=== PATIENT | male | born 1985 | race Caucasian/White ===

== ENCOUNTER → 2018-06-30 | Outpatient (CLI) | payer BC ==
--- NOTE | 2018-06-30 17:57 | XR ---
EXAMINATION TYPE: XR shoulder complete LT DATE OF EXAM: 06/30/2018 COMPARISON: NONE HISTORY: 33 year-old male left shoulder pain for 2 weeks TECHNIQUE: 2 views FINDINGS: AC joint appears intact. Subacromial space is preserved. No tendinous or bursal calcifications. No ac holy cross fracture, subluxation, or dislocation. Visualized left hemithorax is clear. IMPRESSION: No acute osseous abnormality seen.
== END | disposition home or self-care (01) ==
LOC: RADXRMAIN 14:48
PROVIDERS: ATTEND Family Medicine
DX: M25.512 Pain in left shoulder (principal)

== ENCOUNTER → 2020-04-17 | Outpatient (CLI) | payer BC ==
--- NOTE | 2020-04-17 11:25 | XR ---
EXAMINATION TYPE: XR abdomen 1V DATE OF EXAM: 04/17/2020 10:38 AM CLINICAL HISTORY: Pain, loss of appetite, diarrhea. TECHNIQUE: Single supine KUB image of the abdomen is obtained. COMPARISON: None. FINDINGS: There is a paucity of small bowel gas. Small amount of gas and fecal material is seen in no n-distended colon. There is no visceromegaly or abnormal calcification appreciated. No evidence of pn eumoperitoneum within limits of supine technique. The lung bases are clear and the osseous structures are intact. IMPRESSION: Overall nonobstructive bowel gas pattern, although somewhat limited examination due to paucity of sma ll bowel gas.
== END | disposition home or self-care (01) ==
LOC: RADXRMAIN 10:22
PROVIDERS: ATTEND Family Medicine
DX: R14.3 Flatulence (principal); R19.12 Hyperactive bowel sounds
CPT/HCPCS: 74018

== ENCOUNTER → 2020-04-25 | Outpatient (CLI) | payer BC ==
--- NOTE | 2020-04-26 08:57 | US ---
EXAMINATION TYPE: US abdomen complete DATE OF EXAM: 04/25/2020 COMPARISON: NONE CLINICAL HISTORY: 35-year-old male R11.2 Nausea and vomiting. Loss of appetite and N/V x 1 month TECHNIQUE: Multiple sonographic images of the abdomen are obtained. FINDINGS: EXAM MEASUREMENTS: Liver Length: 14.4 cm Gallbladder Wall: 0.2 cm CBD: 0.3 cm Spleen: 11.4 cm Right Kidney: 10.7 x 5.0 x 4.9 cm Left Kidney: 11.2 x 6.1 x 5.2 cm Pancreas: Suboptimal visualization of pancreatic head and tail due to shadowing from bowel gas. Visu alized body shows no gross abnormality. Liver: mildly heterogeneous Gallbladder: wnl Evidence for sonographic Zambrano's sign: no CBD: visualized portions wnl, limited by overlying bowel gas Spleen: visualized portions wnl, limited by overlying bowel gas Kidneys: No hydronephrosis. Upper IVC: wnl Abd Aorta: wnl IMPRESSION: Suboptimal visualization of portions of the pancreas. Otherwise, unremarkable sonographic examination of the abdomen.
== END | disposition home or self-care (01) ==
LOC: RADUSWWP 15:30
PROVIDERS: ATTEND Family Medicine
DX: R11.2 Nausea with vomiting, unspecified (principal)
CPT/HCPCS: 76700

== ENCOUNTER → 2021-04-11 | Outpatient (CLI) | payer BC | END | disposition home or self-care (01) ==

== ENCOUNTER 2021-06-10 08:49 | Day surgery (SDC) | payer BC ==
[2021-06-05 08:36] VITALS: BMI 33.9
[~2021-06-10 08:49] MED LIST: LACTATED RINGERS 1,000 ML IV SCH
[2021-06-10 09:15] VITALS: TEMP 98.4
[2021-06-10] MEDS ORDERED: LACTATED RINGERS 1,000 ML IV ONE (09:25)
[2021-06-10] MEDS ORDERED: methocarbamoL 750 MG TAB PO PRN (09:39)
[2021-06-10] MEDS ORDERED: NON FORMULARY DRUG (Epinephrine (Auto Inject) 0.3 MG/0.3 ML Syringe) IM PRN (09:39)
[2021-06-10] MEDS ORDERED: fentaNYL (PF) 50 MCG/ML 2 ML AMP ONE (09:42)
[2021-06-10] MEDS ORDERED: IOPAMIDOL M200 10 ML VIAL ONE (09:42)
[2021-06-10] MEDS ORDERED: MIDAZOLAM 2 MG/2 ML VIAL ONE (09:42)
[2021-06-10] MEDS ORDERED: methylPREDNISolone ACETATE 40 MG/ML 1 ML VIAL ONE (09:42)
[2021-06-10] MEDS ORDERED: LACTATED RINGERS 1,000 ML IV SCH (09:45)
--- NOTE | 2021-06-10 09:56 | P.PCN ---
Date of Procedure: 06/10/21 Operative Findings: 1. L4-L5 Epidural steroid injection under fluoroscopic guidance, 2. Lumbar epidurogram PREOPERATIVE DIAGNOSIS: Lumbar degenerative disc disease, and Lumbar radiculopathy. POSTOPERATIVE DIAGNOSIS: Lumbar degenerative disc disease, and Lumbar radiculopathy. SURGEON: Moreno Bangura ANESTHESIA: Local with 1% lidocaine, and IV sedation as per anesthesia record EBL: None. Specimen removed: None Fluoroscopic image: saved to electronic medical records PROCEDURE INDICATION: The patient had history of Lumbar degenerative disc disease and Lumbar radiculopathy. Failed to conservative therapy. Presented for epidural steroid injection. PROCEDURE DESCRIPTION: The patient was seen and identified in the preoperative area. Risks, benefits, complications, and alternatives were discussed with the patient. The patient agreed to proceed with the procedure and signed the c onsent. IV was started, and vital signs were stable. Patient was taken to the procedure area, and time out was completed. The patient was placed in the prone position on procedure table and a pillow was placed under the abdomen to reduce lumbar lordosis. The lumbosacral area was prepped and draped in the usual sterile fashion. Critical pause was taken. Vital signs were closely monitored during the procedure. Using anterior-posterior fluoroscopy, the L4-L5 interlaminar space was identified, and skin and deeper tissues were localized with 1% lidocaine. Using anterior-posterior fluoroscopy, lateral fluoroscopy, and dwwk-eo-ljcriepslw technique, a 20 gauge 3.5 Tuohy epidural needle entered the epidural space. After negative aspiration of CSF and blood with no paresthesias, 2 ml of [id number] contrast dye was injected and an excellent epidurogram was seen. Again after negative aspiration of CSF and blood with no paresthesias, 10 mL of block solution was injected into the epidural space. Block solution contained 80 mg of Depo-Medrol, and 8 mL of preservative-free normal saline. Needle was withdrawn intact, skin was cleansed, and bandages were applied. COMPLICATIONS: None. DISPOSITION / PLANS: The patient was placed in a supine position and transferred to the recovery area in a stable condition for observation. Patient was discharged from the recovery room after meeting discharge criteria. Home discharge instructions given to the patient by the staff. The patient was reexamined prior to discharge. The patient will schedule a follow up in the clinic in 4 weeks
[2021-06-10] MEDS ORDERED: IV FLUID CONTINUATION 1,000 ML IV ONE (10:03)
[2021-06-10 10:35] VITALS: BP 116/78; PULSE 56; RESP 20
--- NOTE | 2021-06-10 11:00 | FL ---
Fluoroscopy INDICATION: Pain FINDINGS: Fluoroscopy time: 4 seconds. Images obtained: 2. IMPRESSIONS: 1. Documentation of fluoroscopy.
== END 2021-06-10 10:33 | disposition home or self-care (01) ==
LOC: ORPAIN 08:49
DX: M51.16 Intervertebral disc disorders with radiculopathy, lumbar region (principal)
CPT/HCPCS: 62323; J2250; J1030; J3010; Q9966; 99152

== ENCOUNTER 2021-07-31 11:13 | Day surgery (SDC) | payer BC ==
[2021-07-29 18:36] VITALS: BMI 34.3
[2021-07-31 11:37] VITALS: TEMP 98
[2021-07-31] MEDS: LACTATED RINGERS 1,000 ML IV SCH ×2 (11:42→12:10)
[2021-07-31] MEDS ORDERED: IOPAMIDOL M200 10 ML VIAL ONE (12:11)
[2021-07-31] MEDS ORDERED: fentaNYL (PF) 50 MCG/ML 2 ML AMP ONE (12:11)
[2021-07-31] MEDS ORDERED: methylPREDNISolone ACETATE 40 MG/ML 1 ML VIAL ONE (12:11)
[2021-07-31] MEDS ORDERED: MIDAZOLAM 2 MG/2 ML VIAL ONE (12:11)
--- NOTE | 2021-07-31 12:27 | P.PCN ---
Date of Procedure: 07/31/21 Procedure(s) Performed: PREOPERATIVE DIAGNOSIS: 1- Lumbar Degenerative Disc Diseases 2-Lumbar spondylosis with Facet arthropathy without myelopathy 3-lumbar radiculopathy POSTOPERATIVE DIAGNOSIS: Same as preop diagnosis. PROCEDURE 1. Lumbar epidural steroid injection under fluoroscopic guidance at the L5-S1 level. (Fluoroscopy imaging was available in radiology department) 2. Lumbar epidurogram. ANESTHESIA: Local with 1% lidocaine 3 ml and , moderate sedation with i ntravenous Versed 2 mg ,and fentanyle 100 Mcg EBL: Minimal PROCEDURE INDICATION: The patient with low back pain and radiculitis symptoms unresponsive to conservative treatment. Fluoroscopy was used to optimize visualization of the needle placement and to maximize safety. PROCEDURE DESCRIPTION / TECHNIQUE: The patient was seen and identified in the preoperative area. Risks, benefits, complications including but not limited to infections ,bleeding ,allergic reaction to the medications ,nerve damage and not complete pain releife , and alternatives were discussed with the patient. The patient agreed to proceed with the procedure and signed the consent. IV was started, and vital signs were stable. Patient was taken to the OR and time out was completed. The patient was placed in the prone position on procedure table and a pillow was placed under the abdomen to reduce lumbar lordosis. The lumbosacral area was prepped and draped in the usual sterile fashion.ere closely monitored during the procedure. Conscious sedation was used during the procedure to decrease patients anxiety. Vital signs was monitered during the entire procedure. Using anterior-posterior fluoroscopy, the L5-S1 interlaminar space was identified and the skin over this site was marked and then infiltrated with 1% lidocaine subcutaneously. Subsequently, a 20-gauge Tuohy epidural needle was inserted and advanced toward the epidural space using the ``Loss of resistance technique and guided by AP and lateral fluoroscopy. The correct needle position in the epidural space was verified with the injection of 2 mL of the water soluble contrast dye Isovue 200 contrast and observing an excellent epidurogram with the epidural spread of the dye, after negative aspiration for blood and CSF and in the absence of paresthesias. Again after negative aspiration, a 6 ml mixture containing 80 mg of Depo-medrol , and 2 ml of preservative free Normal Saline, and 2 ml of preservative free lidocaine 1% solution was injected and a washout of epidurogram was seen. Needle was withdrawn intact, skin was cleansed, and bandages were applied. COMPLICATIONS: None DISPOSITION / PLANS: The patient was placed in a supine position and transferred to the recovery area in a stable condition for observation. There was no evidence of lower extremity motor or sensory deficit after the procedure. Patient was discharged from the recovery room after meeting discharge criteria. Home discharge instructions were given to the patient by the staff. The patient was reexamined prior to discharge. The patient will schedule a follow up in the clinic in 2-4 weeks.
[2021-07-31] MEDS ORDERED: LACTATED RINGERS 1,000 ML IV ONE (12:29)
[2021-07-31] MEDS ORDERED: IV FLUID CONTINUATION 1,000 ML IV ONE (12:29)
--- NOTE | 2021-07-31 12:33 | FL ---
Fluoroscopy History: Lumbar Epid Steroid Inj fluoro time: 6 sec. Lumbar SS Lumbar Epidural Steroid injection. 2 images sent.
[2021-07-31 13:00] VITALS: BP 136/94; PULSE 69; RESP 16
== END 2021-07-31 13:05 | disposition home or self-care (01) ==
LOC: ORPAIN 11:13
PROVIDERS: ATTEND Specialist
DX: M51.16 Intervertebral disc disorders with radiculopathy, lumbar region (principal); M47.26 Other spondylosis with radiculopathy, lumbar region; Z88.2 Allergy status to sulfonamides; Z91.048 Other nonmedicinal substance allergy status
CPT/HCPCS: 62323; J2250; J1030; J3010; Q9966; 99152

== ENCOUNTER → 2021-09-15 | Outpatient (CLI) | payer BC ==
[2021-09-15 09:04] LABS: Basophils # (A) 0.1 k/uL (0-0.2); Basophils % (A) 1 %; Eosinophils # (A) 0.2 k/uL (0-0.7); Eosinophils % (A) 2 %; HCT 47.2 % (39.0-53.0); HGB 15.5 gm/dL (13.0-17.5); Lymphocytes # (A) 1.6 k/uL (1.0-4.8); Lymphocytes % (A) 25 %; MCH 30.2 pg (25.0-35.0); MCHC 32.8 g/dL (31.0-37.0); Mean Platelet Volume 7.7; Monocytes # (A) 0.5 k/uL (0-1.0); Monocytes % (A) 7 %; Neutrophils # (A) 3.8 k/uL (1.3-7.7); Neutrophils % (A) 61 %; Platelet Count 219 k/uL (150-450); RBC 5.14 m/uL (4.30-5.90); RDW 12.9 % (11.5-15.5); WBC 6.3 k/uL (3.8-10.6)
[2021-09-15 09:19] LABS: Potassium 4.8 mmol/L (3.5-5.1)
== END | disposition home or self-care (01) ==
LOC: LABWHC1 08:39
PROVIDERS: ATTEND Orthopaedic Surgery
DX: Z01.812 Encounter for preprocedural laboratory examination (principal); M51.26 Other intervertebral disc displacement, lumbar region
CPT/HCPCS: 36415; 80051; 85025

== ENCOUNTER 2021-09-30 08:03 | Day surgery (SDC) | payer BC ==
[2021-09-24 09:14] VITALS: BMI 34.8
[~2021-09-30 08:03] MED LIST changes: +ACETAMINOPHEN TAB 500 MG TAB PO PRN; +GABAPENTIN 300 MG CAP PO PRN; +HYDROmorphone 0.5 MG/0.5 ML SYRINGE IVP PRN; +LIDOCAINE 1% (10MG/ML) FOR IV START INTRADERMA PRN; +ONDANSETRON 4 MG/2 ML VIAL IVP PRN; +TRANEXAMIC ACID 1,000 MG in SODIUM CHLORIDE 0.9% 100 ML IVPB PRN
[2021-09-30] MEDS ORDERED: MIDAZOLAM 2 MG/2 ML VIAL IVP ONE (08:46)
[2021-09-30] MEDS ORDERED: LACTATED RINGERS 1,000 ML IV ONE ×2 (08:50→12:22)
--- NOTE | 2021-09-30 10:17 | P.HPOR ---
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 DOI: 02/11/2021 TREATMENTS COMPLETED: 6 weeks of Physical Therapy Completed? Yes How many sessions? 12 Did it help? No Physician Directed Home Exercise Program Completed? yes Medications: OTC? yes , Ibuprofen without any improvement Rx Medications?: yes If yes, what kind?: Prednisone Alternative Interventions: Chiropractic?: No Brace: No Injections: Yes (lumbar LUIS FELIPE) 06/10/2021 How many? 1 Did they help? No RFA: No HPI: Pt presents today on follow up after his second LUIS FELIPE. He states that the second Luis Felipe which was at L5-S1 seemed to help him the most but he did get relief from both L4-5 and L5-S1. However, it was only about 2 weeks of relief and he is still having symptoms of radiculopathy, weakness, claudicant back pain which are not getting bettter. He intermittently takes motrin for pain which does help, however not consistantly. He states no bowel or bladder iss ues. Denies any perineal numbness/tinglnig. His isin room with him and states his day today is difficult lately due to his sx. HISTORY: Mr. Pabon was last seen on 05/09/2021 regarding his low back. He noted that about four months (02/2021) he stepped out of a car and felt immediate, sharp pain. This has been ongoing since. Regarding the pain the patient does note that the low back pain does radiate down into his right lower extremity, noting burning as well. He did have an EMG for this but the patient was not able to secure a copy of the results of this yet. Overall his pain is severe and the patient noted significant discomfort and inability to perform many of his daily functions. The patient did report that most of his pain is along the left side and he does report associated numbness and tingling in the left lower extremity. He noted that following the injury the patient followed up with his PCP who gave him an injection (done on 02/19/2021 and 02/28/2021) which did not improve his symptoms. He then completed a lumbar LUIS FELIPE injection after his last visit with mys elf without any improvement. Additionally, the patient had previously taken Prednisone given to him by his PCP for pain management with good effect. Along with this he has done PT for the low back with no improvement to his symptoms. Otherwise, the patient denied any bowel issues or incontinence. Today Mr. Pabon presents to the office for a follow up evaluation of his low back. The patient reports that after his last visit on 05/09/2021 he was able to complete only one of the two lumbar LUIS FELIPE due to insurance not approving the second injection. With the one completed injection (on 06/10/2021) the patient denies any improvements to his symptoms. Overall the patient states that his symptoms are the same to what they were at the time of the previous visit, denying any improvement with any conservative treatment thus far. Ralph is still reporting left side pain that radiates into the left lower extremity. This pain increases with ambulation and standing for extended periods of time. Mr. Pabon denies any bladder or bowel issues. The patients' past social, medical, family, surgical history, as well as review of systems, have been reviewed. Please refer to the Neurosurgery History and Physical form that has been scanned in to our electronic medical record system. Review of Systems 14 points review of systems completed and as stated in HPI, all other systems reviewed are negative. Past Medical History Past Medical History: Musculoskeletal Disorder Additional Past Medical History / Comment(s): Back pain, radiates down leftt leg, herniated discs, numbness and tingling in left leg. History of Any Multi-Drug Resistant Organisms: None Reported Past Surgical History: Appendectomy, Ear Surgery, Tonsillectomy Additional Past Surgical History / Comment(s): BMT. Pain Clinic Procedures. Past Anesthesia/Blood Transfusion Reactions: No Reported Reaction Past Psychological History: No Psychological Hx Reported Smoking Status: Former smoker, Vaper Past Alcohol Use History: Occasional Additional Past Alcohol Use History / Comment(s): Smoked 18-20 years, 1 ppd, quit in 2016, now vapes. Past Drug Use History: Marijuana Additional Drug Use History / Comment(s): Marijuana use occasionally. Aware no u se 24 hrs prior to procedure. - Past Family History Mother Family Medical History: No Reported History Medications and Allergies Home Medications Medication Instructions Recorded Confirmed Type EPINEPHrine (Auto Inject) [Epipen] 0.3 mg IM ONCE PRN #1 syringe 04/28/15 09/24/21 Rx Allergies Allergy/AdvReac Type Severity Reaction Status Date / Time Sulfa (Sulfonamide Allergy Unknown Verified 09/24/21 09:07 Antibiotics) venom-honey bee Allergy Unknown Verified 09/24/21 09:07 [bee venom (honey bee)] Physical Examination Osteopathic Statement: *. No significant issues noted on an osteopathic structu ral exam other than those noted in the History and Physical/Consult. PHYSICAL EXAMINATION: General: Awake, alert, appropriate for age, in no acute distress. HEENT: No unusual neck masses around region of lateral neck triangle, thyroid, supraclavicular groove Heart: Regular rate and rhythm, normal S1, S2 and no murmur/gallop. Lungs: Clear to auscultation bilaterally with no use of accessory muscles. Extremities: Skin warm and dry without acute lesions, coloration, temperature, skin intact, no tenderness or erythema Integument: Hairy patches: Absent Dorsal skin dimples: Absent Cafe au lait spots: Absent Surgical incisions: No Palpation: Please see Pain drawing on Intake sheet for further detail. Midline spinal tenderness: No E6 Paralumbar tenderness: No E6 Parathoracic tenderness: No E6 Buttocks tenderness: No E6 Special findings: No POSTURAL and MUSCULO-SKELETAL EVALUATION: Coronal Balance: NEUTRAL Recumbent testing: Patient is able to lay flat on back Sagittal Balance: NEUTRAL Shoulder Profile: LEVEL Pelvic Girdle: LEVEL Neck ROM: UNRESTRICTED Lumbar ROM: UNRESTRICTED Shoulder ROM: Symmetrical Hip ROM: Symmetrical Knee ROM: Symmetrical Hands: Normal appearance, symmetrical Feet: Normal appearance, Symmetrical VASCULAR STATUS : LEFT RIGHT Wrist Pulses INTACT INTACT Pedal Pulses (Dors. pedis & post.tibialis) INTACT INTACT Color NORMAL NORMAL Edema Absent Absent NEUROLOGIC EXAMINATION: Mental Status:Awake and alert, fully oriented, with normal attention, concen tration and memory, and fluent, appropriate speech. Cranial Nerves: I: Olfactory not tested. II: Visual acuity normal, no visual field deficit noted with confrontation. III,IV: Normal pupillary reflexes & intact extraocular movements without nystagmus. V,: Intact symmetrical facial sensation. VII: Intact symmetrical facial motor movement VIII: Hearing intact. IX,X: Intact gag, swallow, & normal voice. XI: Sternocleidomastoid, trapezius function intact. XII: Tongue midline with normal movements. L'hermitte's Sign: Negative / absent Spurling'Sign: Absent bilaterally. Cubital percussion test: Absent bilaterally. Zuri-Tinel sign - Carpal region: Absent bilaterally. Straight Leg Raising: Absent bilaterally. Crossed straight leg raise: negative O8 MOTOR EXAM (0-5/5, N/T) STRENGTH RIGHT LEFT Shoulder Abd (not part of the LISSET score) 5 5 Elbow Flexors 5 5 Elbow Extensor 5 5 Wrist Dorsiflexors 5 5 Finger Abductor 5 5 Proofing Machine Operator 5 5 Hip Flexor (Not part of LISSET Motor score) 5 5 Knee Flexor 5 5 Knee Extensor 5 4 Ankle dorsiflexor 4+ 4 Ankle plantarflexion 5 4 Extensor hallucis 5 5 REFLEXES(0-4/2, NT) RIGHT LEFT Upper Extremities 2 2 Lower Extremities 2 2 Pathological Reflexes RIGHT LEFT Holley's Absent Absent Clonus Absent Absent Babinski Absent Absent # Indicates mechanical impairment Muscle appearance: Symmetrical, without signs of atrophy or dystrophy. Rectal Tone:Deferred Normal, strong with volition control Sensory system (0-4, N/T) Test type RU PATRICIA RL LL Joint-Position 2 2 2 2 Vibration 2 2 2 2 Pain & LT sense 2 2 2 2 Dermatomal Deficit: None None L4-5 L4-5 Gait and Functional Evaluation: Ambulatory aids: Independent Romberg's test: Intact bilaterally Toe heel walk / heel-toe walk intact while maintaining satisfactory balance? yes Squatting/straightening w/o assistance to a min of 60 degree knee flexion? yes Single leg stance: intact Trendelenburg sign negative bilaterally Hand and finger dexterity intact bilaterally? yes Disdiadochokinesis examination negative bilaterally? yes Results XRay taken on 05/09/21 of Lumbar was reviewed by Dr. Chan and indicates: - No acute fractures or dislocations overall alignment maintained in Coronal and sagittal planes, no overt instability noted. There is some spondylosis with disc height narrowing noted of L4-S1, with associated facet arthrosis. No fracture noted. AP pelvis shows congruent stable pelvis, no fractures. - MRI shows large HNP of L4-5 causing severe central and L foraminal stenosis. This is an acute on chronic type herniation as there are two densities noted. There is also an HNP at L5-S1 that is causing moderate central stenosis. This is more of a chronic HNP with small overlying acute features. There is facet arthrosis noted with some bogginess to facets. There are no fractures or instability noted at this time. Assessment and Plan Assessment: 1. L4-L5 HNP severe stenosis 2.L5-S1 HNP moderate stenosis 3. Left lower extremity weakness 4. Left lower extremity Radiculopathy Plan: Spine Surgery Risk Review Ralph Pabon is a 36-year-old male presenting for evaluation of low back pain and lower extremity radiculopathy lower extremity weakness. It was my pleasure to have seen and examined Ralph Pabon. In our visit today we have had a chance to go over subjective complaints, physical examination findings and treatments including the natural course history without intervention and various interventional options. The patients imaging demonstrates a L4 5 and L5-S1 herniated nucleus pulposus with moderate to severe stenosis as well as foraminal stenosis. On physical exam, Ralph Pabon demonstrates lower extremity radiculopathy pain tensioning signs as well as weakness. I have explained to the patient that as their condition progresses it will cause further neurological deficits and eventual paralysis. Based on the patients imaging, physical exam, and the rapid progression and disabling nature of their symptoms, at this time I recommend surgery in the form or a: L4 5 and L5-S1 decompression with micro-discectomy. I discussed the risk and benefits of this procedure at length with Ralph Pabon. The patient his and his mother agreed to considered pursuing the procedure abovementioned. Prior to surgery, she should follow up with her PCP (Cardio, ID, IM etc) for clearance. Questions were invited and answered, and the patient wishes to proceed as outlined below. Currently, I am recommendin. L4 5 and L5-S1 decompression with microdiscectomy 2. Follow up with PCP for surgical clearance 3. Review of surgical risks and benefits as well as an educational packet on the proposed surgical procedure. Risks: All surgical procedures come with inherent risks, including those related to positioning, anesthesia, intraoperative findings, and postoperative complications. It is important to understand that surgery does not come with any guarantee of a successful outcome as complications and adverse events are always possible. The patient was given a handout in office today discussing the surgical procedure and risks associated with the intervention, both of which were discussed with the patient. These risks include but are not limited to the following: * Experiencing same, different or even worse symptoms in back, neck, arms, or legs compared to before surgery. * Requiring further surgery or other forms of treatment presently or at some time in the future at same or other levels of the intended spine surgery. * On an extreme but fortunately relatively rare basis severe complication such as blindness, stroke, heart attack, temporary and/or permanent nerve injury, paralysis, coma, or may occur, sometimes without known explanation. * Surgical complications may include but are not limited to risk of infec tion, fluid accumulation in the surgical dissection site, including a seroma or hematoma, that requires additional surgery, wound drainage, bleeding, new numbness or weakness, vision changes/loss, spinal fluid leakage, non-healing and/or infected incision, headaches, difficulty or inability to swallow, hoarseness, hemopneumothorax, pneumothorax, impotence, retrograde ejaculation, vaginal dryness; injury to nerves, spinal cord, blood vessels, lymphatics or other vital organs (i.e., bowel injury, injury to the great vessels); heterotopic bone formation; complications related to the hardware such as screws, rods, cages including misplaced hardware, device failure, instrumentation at the wrong spine level, hardware fracture/breakage, or hardware loosening; vertebral failure of the spinal column above or below the newly placed hardware; retained surgical instrumentations or devices and the need for further surgery. * Medical risks of the planned spine surgery include but are not limited to generalized Infections to the whole body or local areas outside of the surgical site (sepsis), heart attack, bleeding, anaphylaxis, meningitis, seizure, epilepsy, hearing loss, burn lees, laceration of the head or other areas of the body, bruising, hypersensitivity of the skin, bladder over distension; allergic reaction; shoulder injury related to positioning; fat, blood and air clots to other areas of the body like heart, lungs, brain; failure of internal organs such as lungs, kidneys, liver and excessive bleeding. If blood transfusions are necessary, note that transfusions may caus e intolerance reactions such as anaphylaxis or other complex reactions. * Despite best efforts, the results of spine surgery might not heal in terms of bone, soft tissues such as skin, fascia, ligaments, and joints. Additionally, in order to achieve best possible results, spine surgery may be carried out beyond the initially planned levels and involve decompression, fusion including insertion of hardware at levels other than the original intended area of surgical interest change some portions of the procedure in order to ensure the best possible outcomes. * With spine surgery and spinal fusion, there are different off label uses of instrumentation (devices, implants and hardware) as well as biological substances (bone morphogenic proteins, demineralized bone matrix) as well as using extra bone from allograft sources (i.e. cadaver bone) or autograft (iliac crest bone, ribs, or the spine itself). The patient has been given information about these practices and their inherent risks and benefits. The patient has had a chance to review all the listed information, has been given print outs detailing this information, and has had all his/her questions answered to their satisfaction. It was my pleasure to have seen and examined Ralph Pabon. In our visit today we have had a chance to go over my understanding of our patient's current condition, the natural course history without intervention and various interventional options. Questions were invited and answered, and the patient wishes to proceed as outlined above. I have seen and examined the patient for 25 minutes and we have spent more than 50% of the time in repeat and detailed counseling about the patient's condition, its natural course history with out and as much as can be predicted with surgery and re-review of various surgical treatment options. In conclusion, Ralph Pabon and his and his mother requested we proceed with the above suggested surgery and are willing to accept risks and limitations of the suggested surgery as nature of the disease process and our best attempts at treatment for the condition. Thank you again for allowing us to be part of your patient's care. Please don't hesitate to contact me if you have any further questions. Signed and authenticated by: Kyle Seals [facility] [address] [place] [address] [address] [address]
[2021-09-30] MEDS ORDERED: MIDAZOLAM 2 MG/2 ML VIAL ONE (10:42)
[2021-09-30] MEDS ORDERED: ROCURONIUM 10 MG/ML (5 ML VIAL) IV ONE (10:42)
[2021-09-30] MEDS ORDERED: SUCCINYLCHOLINE CHLORIDE 100 MG/5 ML SYR IV ONE (10:42)
[2021-09-30] MEDS ORDERED: NEOSTIGMINE 1 MG/ML 10 ML VIAL ONE (10:42)
[2021-09-30] MEDS ORDERED: GLYCOPYRROLATE 0.2 MG/ML 2 ML VIAL ONE (10:42)
[2021-09-30] MEDS ORDERED: LIDOCAINE 1% INJ 10MG/ML (20 ML MDV) ONE (10:42)
[2021-09-30] MEDS ORDERED: HYDROmorphone (PF) 1 MG/ML ONE (10:42)
[2021-09-30] MEDS ORDERED: TRANEXAMIC ACID 1,000 MG/10 ML VIAL ONE (10:42)
[2021-09-30] MEDS ORDERED: PROPOFOL 10 MG/ML 20 ML VIAL IV ONE (10:42)
[2021-09-30] MEDS ORDERED: fentaNYL (PF) 50 MCG/ML 2 ML AMP ONE (10:42)
[2021-09-30] MEDS ORDERED: SODIUM CHLORIDE 0.9% 100 ML BAG ONE (10:42)
[2021-09-30] MEDS ORDERED: BUPIVACAINE (PF) 0.25% 30 ML VIAL SQ ONE (11:19)
[2021-09-30] MEDS ORDERED: THROMBIN (BOVINE) 5,000 UNIT VIAL TOPICAL ONE (11:25)
[2021-09-30] MEDS ORDERED: GELATIN SPONGE,ABSORB (LARGE) 1 EACH SPONGE TOPICAL ONE (11:25)
[2021-09-30] MEDS ORDERED: VANCOMYCIN 1,000 MG VIAL MISCELLANE ONE (13:21)
--- NOTE | 2021-09-30 13:29 | FL ---
EXAMINATION TYPE: FL guidance operating room DATE OF EXAM: 09/30/2021 HISTORY: Fluoroscopy time 7 seconds of fluoroscopy provided. IMPRESSION: 1. Fluoroscopy time.
--- NOTE | 2021-09-30 13:34 | XR ---
EXAM TYPE: LUMBAR SPINE X RAY SERIES COMPARISON: NONE HISTORY: Intraoperative localization TECHNIQUE: 5 views are submitted. FINDINGS: Metallic surgical instrument seen posterior to the lower lumbar spine. Findings suggest intraoperativ e localization. Exam limited by resolution from intraoperative technique. IMPRESSION: 1. Intraoperative localization..
[2021-09-30 14:13] VITALS: TEMP 97.4
[2021-09-30 15:04] VITALS: RESP 16
[2021-09-30 15:18] VITALS: BP 137/86; PULSE 58
--- NOTE | 2021-10-01 16:11 | P.OP ---
Date of Procedure: 09/30/21 Preoperative Diagnosis: 1. L4-5 severe stenosis with HNP 2. L5-S1 mild stenosis 3. L4-S1 spondylosis 4. RLE and LLE radiculopathy 5. RLE weakness Postoperative Diagnosis: 1. L4-5 severe stenosis with HNP 2. L5-S1 mild stenosis 3. L4-S1 spondylosis 4. RLE and LLE radiculopathy 5. RLE weakness Procedure(s) Performed: 1. L4-5 bilateral laminotomy, foraminotomy with partial medial facetectomy and partial discectomy 2. L4-5 epidural decompression for further nerve root decompression 3. L5-S1 decompressive laminotomy bilateral with foraminotomy 4. Use of intraoperative microscope 5. Interpretation of intraoperative flouroscopic images <1 hr Implants: none Anesthesia: GETA Surgeon: Kyle Anderson [employer] Machine Helper #1: Moisés Fam (Was present and necessary due to the complexity of the case) Estimated Blood Loss (ml): 150 IV fluids (ml): 2,000 Urine output (ml): 0 Pathology: none sent Condition: stable Disposition: PACU Indications for Procedure: 36 yo male presents with c/o low back pain as well as RLE and LLE pain that seems to go back and forth. This started back in February of 2021 and he has been pursuing conservative measures for this since then including PT, chiropractics, HEP, medications, injections all without resolution of his symptoms. At this time he has reached a point of wanting surgical treatment as it is affecting his work and he is unable to go to work due to his pain and weakness. We discussed different surgical options including decompression, fusion and non fusion modalities. At this time the patient and I have agreed that he is very young to have a fusion and we will attempt to relieve his neurological symptoms with decompression. He understands that this may not relieve his back pain or all of his leg pain as he has had it for some time now. He and his and his mother all agree and are willing to pursue surgical intervention. Risks and benefits discussed and outlined in risk review. He is willing to continue with surgery. Description of Procedure: The patient was seen and examined in the preoperative area. All preoperative protocols were followed. Informed consent was obtained risks and benefits of the procedure were discussed at length. Risks including bleeding infection damage to the surrounding tissue and risk of reoperation were discussed with the patient. Risk of anesthesia up to and including was a discussed with the patient. These are outlined in the risk review. They were willing to accept these risks and all of the risks of surgery. The patient was given a weight- based dose of antibiotics in the form of 2 g Ancef. The patient was seen and evaluated by the anesthesia team who deemed them fit for surgery. The site was marked, the patient was willing to proceed with the procedure. The patient was transferred to the operative suite by the Department of anesthesia. They were then drifted off to sleep by the department anesthesia and GETA was performed. The patient tolerated this well. . Once confirmation of lines and ventilation the patient was transferred to a prone Miko table very carefully. All bony prominences including wrists, elbows, axilla, chest, hips, and thighs, and feet were padded very well. Special attention was paid to the genitalia and these were padded accordingly. SCDs were placed on bilateral lower extremities and were connected. Arms were well padded and placed on arm boards up and out in the 90/90 position. Once in position, again we confirmed good ventilation capabilities and that lines were running appropriately. The patient's lumbar spine was then exposed. 1010s were placed outlining the incision site. Standard alcohol was used to clean the incision site and allowed to dry. C-arm was used to biomark the patient and confirm level for incision which was marked with a skin marker. Operative briefing was performed with all teams and everyone in agreement to proceed. The patient was then prepped and draped in a normal sterile fashion. Timeout was then performed and all parties were in agreement with the procedure to be performed. Midline skin incision was made over the previously by marked area dissection taken down until the lumbar fascia was encountered which was cleaned with a [place]. We then performed bilateral midline sparing fasciotomy. Subperiosteal dissection was taken down the lamina of L4 and L5 to visualize the L4 5 and L5- S1 joints. Once these were identified a [place] 4 was placed at the L4 5 pars and lateral fluoroscopic imaging confirmed the L4 5 interspace. We then performed midline sparing bilateral laminotomy foraminotomy and medial facetectomy of L4-L5. This was done with inverted U-shaped cuts and L4 and J cuts and L5. Medial facetectomy partial were performed bilaterally as well as foraminotomies bilaterally. We are then able to decompress the traversing L5 roots using Kerrison rongeur. We also took the J cuts slightly lower into L5 to effectively decompress L5 and S1. We then turned our attention to the L4 5 disc space which was identified using a [place] 4. Willing carefully manipulated and mobilized the nerve roots and dura to allow visualization here. We then performed partial discectomy at L4-L5 insuring to impact the disc into the space and remove any extruding fragments using a pituitary. This allowed us to decompress the foramen further as well as centrally. Once we had decompressed centrally and foraminally, the disc space was irrigated to remove any further fragments. Bipolar electrocautery was then used around the annulotomy to help it to seal. We then thoroughly irrigated the wound with 6 L of saline antibiotic and normal. Meticulous hemostasis was performed using hemostatic agents. A drain was placed deep within the wound and out a separate incision. This was secured into place with a drain stitch. We placed vancomycin powder 2 g deep within the wound. Then performed a layered closure first of the fascia with #1 Vicryl the wound edges and fascial edges approximated very well. We then closed the deep subcu tissue with 0 Vicryl the superficial subcu tissue with 2-0 Vicryl and the skin with skin kiran. The wound edges approximated very well. There were then cleaned with alcohol and dressed sterilely with op to foam dressing as well as a drain sponge and Tegaderm. The patient was transferred back to their hospital bed atraumatically. Drain continued to hold suction and were in good position. Patient was then awakened and extubated by the department of anesthesia having tolerated the procedure very well with no complications. They were transferred to the postoperative care unit in stable condition.
== END 2021-09-30 15:31 | disposition home or self-care (01) ==
LOC: OR 08:03
PROVIDERS: ATTEND Orthopaedic Surgery
DX: M51.26 Other intervertebral disc displacement, lumbar region (principal); M47.26 Other spondylosis with radiculopathy, lumbar region; M51.16 Intervertebral disc disorders with radiculopathy, lumbar region; M48.061 Spinal stenosis, lumbar region without neurogenic claudication; Z20.822 Contact with and (suspected) exposure to COVID-19; Z87.891 Personal history of nicotine dependence; Z90.49 Acquired absence of other specified parts of digestive tract; Z97.2 Presence of dental prosthetic device (complete) (partial); Z79.899 Other long term (current) drug therapy; Z98.890 Other specified postprocedural states; Z88.2 Allergy status to sulfonamides; Z91.030 Bee allergy status
CPT/HCPCS: 87635; 72100; 63047; 63048; C1762; J2250; J3370; J2710; J0690; J2405; J2001; J3010; J1170; J0330; J2704

== ENCOUNTER → 2022-09-30 | Outpatient (CLI) | payer BC ==
--- NOTE | 2022-10-02 09:42 | MR ---
EXAMINATION TYPE: MR lumbar spine wo/w con DATE OF EXAM: 09/30/2022 10:32 PM COMPARISON: Lumbar radiograph 09/22/2021. CLINICAL INDICATION:Male, 37 years old with history of M54.50; TECHNIQUE: Multi planar, multi sequence imaging was performed utilizing: T1-weighted, T2-weighted, a nd turbo inversion recovery imaging of the lumbar spine. IV Contrast: 11.5 cc Gadavist. None. FINDINGS: Alignment: The lumbar vertebral bodies have preserved heights and alignment. Cord: The conus medullaris and the distal spinal cord appear unremarkable with regards to their signa l intensity and morphology. Bones/Discs: Multilevel disc degeneration changes with osteophyte formation and disc space narrowing are present. There is disc desiccation the lower lumbar spine. Scattered Modic endplate changes are p resent. Laminectomy surgical changes at L4/L5 suboptimally valuate given slice selection. No surgical bed fluid collection identified. L1-L2: Left central disc protrusion which closely approximate the cauda equina on the left. Overall t he cervical canal is patent the neural foramen are patent. L2-L3: No evidence of significant spinal canal stenosis or neural foraminal stenosis. L3-L4: Disc bulge and facet joint arthropathy result in mild spinal canal and mild bilateral neural f oraminal stenosis. L4-L5: Disc bulge and facet joint arthropathy result in mild spinal canal and mild bilateral neural f oraminal stenosis. L5-S1: No evidence of significant spinal canal stenosis. Facet joint arthropathy mild bilateral neura l foraminal stenosis. Other findings: None. IMPRESSION: 1. No definitive evidence of significant spinal canal stenosis. 2. L1-L2 left central disc herniation which closely approximates the cauda equina on the left. 3. Multilevel disc degeneration with associated osteoarthritic changes.
== END | disposition home or self-care (01) ==
LOC: RADMRIMAIN 21:45
PROVIDERS: ATTEND Orthopaedic Surgery
DX: M51.26 Other intervertebral disc displacement, lumbar region (principal); M51.36 Other intervertebral disc degeneration, lumbar region; M47.816 Spondylosis without myelopathy or radiculopathy, lumbar region; M99.73 Connective tissue and disc stenosis of intervertebral foramina of lumbar region
CPT/HCPCS: 72158; A9585

== ENCOUNTER → 2024-09-16 | Outpatient (CLI) | payer BC ==
[2024-09-16 12:51] LABS: Basophils # (A) 0.07 X 10*3/uL (0.00-0.10); Basophils % (A) 0.9 %; Eosinophils # (A) 0.13 X 10*3/uL (0.04-0.35); Eosinophils % (A) 1.7 %; HCT 50.2 % (39.6-50.0); HGB 16.9 g/dL (13.0-17.0); Lymphocytes # (A) 1.55 X 10*3/uL (0.90-5.00); Lymphocytes % (A) 20.2 %; MCHC 33.7 g/dL (32.0-37.0); Mean Platelet Volume 10.4 FL (9.5-12.2); Monocytes # (A) 0.75 X 10*3/uL (0.20-1.00); Monocytes % (A) 9.8 %; NRBC Per 100 WBC 0 X 10*3/uL (0.00-0.01); Neutrophils # (A) 5.14 X 10*3/uL (1.80-7.70); Neutrophils % (A) 66.9 %; Platelet Count 209 X 10*3/uL (140-440); RBC 5.64 X 10*6/uL (4.40-5.60); RDW 12.4 % (11.5-14.5); WBC 7.68 X 10*3/uL (4.50-10.00)
[2024-09-16 13:11] LABS: ALT 43 U/L (10-49); AST 40 U/L (14-35); Albumin 4.5 g/dL (3.8-4.9); Albumin/Globulin Ratio 1.55 Ratio (1.60-3.17); Alkaline Phosphatase 103 U/L (41-126); BUN/Creat Ratio 10.57 Ratio (12.00-20.00); Blood Urea Nitrogen 7.4 mg/dL (9.0-27.0); Carbon Dioxide 23.7 mmol/L (21.6-31.8); Chloride 102 mmol/L (96-109); Chol/HDL Ratio 2.22 Ratio; Globulin 2.9 g/dL (1.6-3.3); Glucose 94 mg/dL (70-110); Hepatitis C IgG Antibody Nonreactive (Nonreactive); LDL Cholesterol,Calculated 103.5 mg/dL (0.0-131.0); Potassium 4.5 mmol/L (3.5-5.5); Sodium 138 mmol/L (135-145); Total Bilirubin 0.4 mg/dL (0.3-1.2); Total Protein 7.4 g/dL (6.2-8.2); VLDL Calculation 14.18 mg/dL (5.00-40.00)
== END | disposition home or self-care (01) ==
LOC: LABWHC1 08:46
PROVIDERS: ATTEND Family Medicine
DX: Z00.00 Encounter for general adult medical examination without abnormal findings (principal); I10 Essential (primary) hypertension; L98.9 Disorder of the skin and subcutaneous tissue, unspecified; F17.290 Nicotine dependence, other tobacco product, uncomplicated; Z11.59 Encounter for screening for other viral diseases; Z13.220 Encounter for screening for lipoid disorders; Z68.33 Body mass index [BMI] 33.0-33.9, adult
CPT/HCPCS: 36415; 80053; 80061; 84443; 85025; 86803; 87522

== ENCOUNTER → 2024-12-25 | Outpatient (CLI) | payer BC ==
--- NOTE | 2024-12-25 16:49 | XR ---
EXAMINATION TYPE: XR foot complete LT DATE OF EXAM: 12/25/2024 4:41 PM COMPARISON: None CLINICAL INDICATION: Male, 39 years old with history of M79.671 PAIN IN RIGHT FOOT; PHH, pain TECHNIQUE: XR foot complete LT examined in the AP, oblique, and lateral projections. FINDINGS: No evidence of any acute osseous pathology. Degeneration changes of the first digit metatarsophalange al joint with mild joint space narrowing and osteophyte formation. Calcaneal Achilles enthesophyte. IMPRESSION: 1. No evidence of acute fracture. 2. Mild first digit metatarsophalangeal joint degeneration changes. [facility], , 12/25/2024 4:47 PM
== END | disposition home or self-care (01) ==
LOC: RADXRMAIN 15:44
PROVIDERS: ATTEND Family Medicine
DX: M19.072 Primary osteoarthritis, left ankle and foot (principal)